=== PATIENT | female | born 1940 | race Caucasian/White ===

== ENCOUNTER 2017-06-20 16:01 | Observation (INO) | payer MEDICARE ==
[2017-06-20 17:10] LABS: #Basophils 0.1 thou/uL (0.0-0.2); #Eosinphils 0.1 thou/uL (0.0-0.7); #Lymphocytes 0.9 thou/uL (1.20-3.40); #Monocytes 0.6 thou/uL (0.11-0.59); %Basophils 2.2 % (0.0-1.0); %Eosinophils 1.9 % (0.0-10.0); %Lymphocytes 13.1 % (21.0-51.0); %Monocytes 8.6 % (0.0-10.0); Band 3 % (5-11); Hematocrit 36.2 % (36.0-47.0); Neutrophil 69 % (42-75); Reactive Lymphocytes 8 % (0-10); Red Blood Cell (RBC) Count 4.22 mill/uL (4.20-5.40); Vacuoles SLIGHT; White Blood Cell (WBC) Count 6.7 thou/uL (4.8-10.8)
[2017-06-20 17:13] LABS: ALT (SGPT) 19 U/L (8-55); AST (SGOT) 25 U/L (5-34); Alkaline Phosphatase 87 U/L (40-150); Anion Gap 15 mmol/L (10-20); BUN (Urea Nitrogen) 12 mg/dL (9.8-20.1); Bilirubin, Total 0.8 mg/dL (0.2-1.2); Calc. Creatinine Clearance 0 mL/min (70-130); Calcium 9.2 mg/dL (7.8-10.44); Carbon Dioxide 21 mmol/L (23-31); Chloride 93 mmol/L (98-107); Estimated GFR-MDRD 63; Globulin 2.7 g/dL (2.4-3.5); Protein, Total 6.7 g/dL (6.0-8.3)
[2017-06-20 17:15] LABS: Troponin I Less than 0.010 ng/mL (< 0.028)
[2017-06-20 17:30] LABS: Bilirubin Negative (Negative); Blood, Urine Negative (Negative); Glucose, Urine (Dipstick) Negative (Negative); Ketone, Urine 15 mg/dL (Negative); Nitrite Negative (Negative); Protein, Urine (Dipstick) Negative (Neg-Trace); Urobilinogen 0.2 mg/dL (0.2-1.0)
[2017-06-20 20:16] VITALS: BMI 20.5
[2017-06-20] MEDS ORDERED: Sodium Chloride 0.9% 1,000 ML IV SCH ×2 (20:45→22:30)
[2017-06-20] MEDS ORDERED: cloNIDine 0.1 MG TAB PO PRN (22:16)
[2017-06-20] MEDS ORDERED: Acetaminophen 325 MG TAB PO PRN (22:16)
[2017-06-20] MEDS ORDERED: Ondansetron HCl/PF 4 MG/2 ML Vial IVP PRN (22:16)
[2017-06-20] MEDS ORDERED: Bisacodyl 5 MG TAB PO PRN (22:16)
--- NOTE | 2017-06-20 23:06 | HP ---
PRIMARY CARE PHYSICIAN: Dk Benitez M.D. SLIDE FASTENER CHAIN ASSEMBLER: Dallin Montalvo M.D. CHIEF COMPLAINT: Generalized weakness and chills. HISTORY OF PRESENT ILLNESS: Ms. Gongora is a pleasant, 77-year-old lady, who was seen at [facility] on 06/20/2017. She presented to [facility] Emergency Room complaining of chills and weakness. She has a history of hypertension. She reports that it was poorly controlled over the last several w eeks. She reports having renal ultrasound at [facility] and is currently awaiting a CT scan next week. She brought with her record of her medication use over the last few weeks. It appears that she has t ried hydrochlorothiazide for a few weeks. This was stopped, and then subsequently, she has been advi sed to try hydralazine. She took hydralazine for 2 days. She reports that her blood pressure has be en lower than usual after starting hydralazine. However, she woke up today with chills and generaliz ed weakness, attributes it to hydralazine use. She also reports that she has a dry mouth and has been very thirsty. She reports drinking a lot of w ater. REVIEW OF SYSTEMS: The following complete review of systems was negative, unless otherwise mentioned in the HPI or below: Constitutional: Weight loss or gain, sense of well-being, ability to conduct usual activities, exerc ise tolerance. Skin/Breast: Rash, itching, changes in hair growth or loss, nail changes, breast lumps, tenderness, swelling, nipple discharge. Eyes: Vision, double vision, tearing, blind spots, pain. ENT/Mouth: Headaches (location, time of onset, duration, precipitating factors), vertigo, lightheade dness, injury. Vision, double vision, tearing, blind spots, pain, nose bleeding, colds, obstruction, discharge, dental difficulties, gingival bleeding, dentures, neck stiffness, pain, tenderness, masses in thyroid or other areas. Cardiovascular: Precordial pain, substernal distress, palpitations, syncope, dyspnea on exertion, or thopnea, nocturnal paroxysmal dyspnea, edema, cyanosis, hypertension, heart murmurs, varicosities, ph lebitis, claudication. Respiratory: Pain, shortness of breath, wheezing, stridor, cough, hemoptysis, fever or night sweats. Gastrointestinal: Poor appetite, dysphagia, indigestion, abdominal pain, heartburn, eructation, naus ea, vomiting, hematemesis, jaundice, constipation, or diarrhea, abnormal stools (suzanne-colored, tarry, bloody, greasy, foul smelling), flatulence, hemorrhoids, recent changes in bowel habits. Genitourinary: Urgency, frequency, dysuria, nocturia, hematuria, polyuria, oliguria, unusual (or rbeeca nge in) color of urine, stones, hesitancy, change in size of stream, dribbling, acute retention or in continence, libido, potency. Musculoskeletal: Pain, swelling, redness or heat of muscles or joints, limitation, of motion, muscul ar weakness, atrophy, cramps. Neurologic/Psychiatric: Convulsions, paralyses, tremor, incoordination, paresthesias, difficulties w ith memory of speech, sensory or motor disturbances, or muscular coordination (ataxia, tremor), emoti onal problems, anxiety, depression, previous psychiatric care, unusual perceptions, hallucinations. Allergy/Immunologic: Skin rash, anemia, bleeding tendency, polydipsia, polyuria, intolerance to heat or cold. PAST MEDICAL HISTORY: Significant for hypertension. PAST SURGICAL HISTORY: Significant for bladder and bowel tuck surgery in 2007. SOCIAL HISTORY: The patient denies tobacco use, alcohol use or recreational drug use. FAMILY HISTORY: Significant for hypertension and intracranial aneurysm rupture in her mother. ALLERGIES: She is allergic to IODINE-CONTAINING DRUGS and NONSTEROIDAL ANTI-INFLAMMATORY AGENTS. CURRENT MEDICATIONS: Include Benicar 20 mg daily, Toprol-XL 12.5 mg daily, which she took today, kuldeep nidine 0.1 mg as needed for systolic blood pressure greater than 180, and hydralazine 25 mg 2 times a day. PHYSICAL EXAMINATION: GENERAL: On examination, Ms. Gongora is awake and alert, not in acute distress. VITAL SIGNS: Blood pressure is 172/80, pulse is 97, she is breathing at rate of 20 and saturating 10 0% on room air. She is afebrile. EYES: No scleral icterus. No conjunctival pallor. ENT: Moist mucosal membranes, no oropharyngeal erythema or exudates. NECK: Supple, nontender, normal range of movement, trachea is midline. RESPIRATORY: Accessory muscles of breathing are not active. Chest wall movements are symmetric bila terally. LUNGS: Clear to auscultation without wheeze, rhonchi or crepitations. CARDIOVASCULAR: S1 and S2 are heard, regular. Peripheral pulses palpable. No carotid bruit, no per icardial rub. ABDOMEN: Soft, nontender, bowel sounds are heard, no hepatomegaly, no splenomegaly. SKIN: No rashes or subcutaneous nodules. NEUROLOGIC: Cranial nerves II-XII are intact. Deep tendon reflexes are 2+. MUSCULOSKELETAL: Power is 5/5 in all 4 extremities, normal range of movement at all major extremity joints. PSYCHIATRIC: Normal mood, normal affect, patient is oriented to person, place, and time. LABORATORY DATA: Ms. Gongora' labs and investigations were reviewed. She had an electrocardiogram, whic h shows normal sinus rhythm, no ST changes to suggest an acute coronary syndrome. Laboratory investi gation show a normal white count, normal hemoglobin, elevated platelet count of 485,000, decreased so dium of 125, normal potassium, normal creatinine and normal liver profile. Urinalysis shows ketones. ASSESSMENT AND PLAN: Ms. Gongora is a pleasant, 77-year-old lady, who was seen at [facility] on 06/20/2017. Her problem list includes: 1. Hyponatremia: Etiology unclear, but could be related to her hydrochlorothiazide use or to excess free water intake. We will admit her to the hospital and restrict oral fluid intake to less than 2 liters per day. We will also start intravenous normal saline at 75 mL per hour. We will initiate wo rkup for hyponatremia. 2. Hypertension: We will resume her home medications, monitor vital signs, and titrate antihyperten sives as needed. 3. Thrombocythemia: Etiology unclear. We will recheck. The patient may need workup as outpatient. Many thanks for allowing me to participate in your patient's care. Please feel free to contact me wi th any questions or concerns. LEVEL OF RISK: Moderate. LEVEL OF COMPLEXITY: Moderate.
[2017-06-21 03:55] LABS: Potassium, Urine Less than 10.0 mmol/L; Sodium, Urine 38 mmol/L (Not Available)
[2017-06-21 06:04] LABS: Anion Gap 9 mmol/L (10-20); BUN (Urea Nitrogen) 9 mg/dL (9.8-20.1); Calc. Creatinine Clearance 55 mL/min (70-130); Calcium 8.6 mg/dL (7.8-10.44); Carbon Dioxide 23 mmol/L (23-31); Chloride 104 mmol/L (98-107); Cholesterol 204 mg/dl (< 200 Desired); Estimated GFR-MDRD 70; LDL Cholesterol, Calculated 128 mg/dL
[2017-06-21 06:11] LABS: Hematocrit 36.2 % (36.0-47.0); Mean Platelet Volume 6.2 fL (7.4-10.4); Neutrophil 66 % (42-75); Red Blood Cell (RBC) Count 3.98 mill/uL (4.20-5.40); White Blood Cell (WBC) Count 4.8 thou/uL (4.8-10.8)
[2017-06-21] MEDS ORDERED: Enoxaparin Sodium 40 MG/0.4 ML SYRINGE SC SCH (09:00)
[2017-06-21 11:35] VITALS: BP 149/70; TEMP 97.4
--- NOTE | 2017-06-21 12:46 | PDOC.PN ---
- Subjective Encounter Start Date: 06/21/17 Encounter Start Time: 12:45 Ms. Gongora was seen today in follow-up of generalized weakness. She is feeling much better now, and does not have any complaints. - Objective Resuscitation Status: Resuscitation Status FULL:Full Resuscitation MAR Reviewed: Yes Vital Signs & Weight: Vital Signs (12 hours) Temp Pulse Resp BP BP Pulse Ox 06/21/17 11:35 97.4 F L 78 16 149/70 H 98 06/21/17 08:00 97.9 F 78 18 06/21/17 07:45 78 18 182/77 H 97 06/21/17 03:20 97.8 F 78 14 155/71 H 95 Weight Weight 127 lb I&O: 06/20/17 06/21/17 06/22/17 06:59 06:59 06:59 Intake Total 1151 Output Total 2350 Balance -1199 Result Diagrams: 06/21/17 05:04 06/21/17 05:04 Phys Exam - Physical Examination HEENT: PERRLA Respiratory: no wheezing, no rales, no rhonchi, clear to auscultation bilateral Cardiovascular: RRR, no significant murmur Gastrointestinal: soft, non-tender, positive bowel sounds Musculoskeletal: no edema Dx/Plan (1) Generalized weakness Code(s): R53.1 - WEAKNESS Status: Acute (2) Hypertension Code(s): I10 - ESSENTIAL (PRIMARY) HYPERTENSION Status: Acute (3) Hyponatremia Code(s): E87.1 - HYPO-OSMOLALITY AND HYPONATREMIA Status: Acute - Plan * Hyponatremia- improved- likely from volume depletion- this should likey resolve now that she is no longer taking HCTZ * Generalized weakness- from hyponatremia * She is stable for discharge home
--- NOTE | 2017-06-21 18:59 | DIS ---
PRIMARY CARE PHYSICIAN: Dr. Benitez. DATE OF ADMISSION: 06/20/2017 DATE OF DISCHARGE: 06/21/2017 DISCHARGE DISPOSITION: Home. PRIMARY DISCHARGE DIAGNOSES: 1. Generalized weakness. 2. Hyponatremia, likely secondary to hydrochlorothiazide. 3. Hypertension. DISCHARGE MEDICATIONS: The patient is to continue Benicar 20 mg daily, metoprolol succinate 12.5 mg daily, and clonidine as needed. ALLERGIES: IODINE and NSAIDS. CODE STATUS: Full CODE. HOSPITAL COURSE: Ms. Gongora is a pleasant 77-year-old female who was brought to the emergency room afte r she was feeling generally weak and started having chills, feeling like she was ice cold. Her [facility] physician had been working with her blood pressure medications in order to try to achieve bet ter control. She had been on hydrochlorothiazide for a few weeks and then this was discontinued and then placed on hydralazine. This is when she began having these symptoms. When she was seen in the emergency room, she was found to have a sodium of 125. It is felt that her serum sodium was low as a result of hydrochlorothiazide usage. This corrected easily with saline and it is felt that the othe r symptoms that she had was result of the side effects to hydralazine. She will be discharged home a nd she was instructed to continue her previous medication regimen including the olmesartan and metopr olol with clonidine as needed. She can liberalize her sodium intake and then followup with Dr. Benitez within the next week for further instructions as to what to do with her blood pressure.
== END 2017-06-21 13:55 | disposition home or self-care (01) ==
LOC: SCSER 16:01 → 2SW 18:12
PROVIDERS: ADMIT Internal Medicine Infectious Disease; ATTEND Internal Medicine Infectious Disease
DX: R53.1 Weakness (principal); E87.1 Hypo-osmolality and hyponatremia; I10 Essential (primary) hypertension; R68.83 Chills (without fever); D47.3 Essential (hemorrhagic) thrombocythemia; Z79.899 Other long term (current) drug therapy; Z88.6 Allergy status to analgesic agent; Z88.8 Allergy status to other drugs, medicaments and biological substances; Z91.041 Radiographic dye allergy status; Z98.890 Other specified postprocedural states
CPT/HCPCS: 80048; 80053; 80061; 81003; 82436; 82553; 82570; 83930; 83935; 84133; 84300; 84443; 84484; 85025 ×2; 93005; 96360; 96361 ×2; 96372; 97139; 99285; G0378; 36415; J1650

== ENCOUNTER 2018-03-22 17:36 | Emergency (ER) | payer MEDICARE | END 2018-03-22 18:11 | disposition home or self-care (01) | LOC: SCSER 17:36 | DX: T16.1XXA Foreign body in right ear, initial encounter (principal); I10 Essential (primary) hypertension; Z79.899 Other long term (current) drug therapy | CPT/HCPCS: 69200 ==

== ENCOUNTER 2020-09-04 10:56 | Outpatient (CLI) | payer MEDICARE, OTHER ==
--- NOTE | 2020-09-04 12:50 | RAD ---
Exam: 3 views lumbar spine HISTORY: L5 compression fracture COMPARISON: None Correlation: Chest abdomen pelvis CT 06/28/2020 FINDINGS: 5 lumbar type vertebra. Redemonstration of a compression deformity at L5. There does appear to be slight progression from the loss of vertebral body height when taking different modalities and consideration. There is retropulsion. There is approximately 40% loss of vertebral body height IMPRESSION: L5 compression fracture with retropulsion. Approximately 40% loss of vertebral body maribel damico
--- NOTE | 2020-09-04 12:50 | RAD ---
Exam: 2 views thoracic spine HISTORY: T8 compression fracture. COMPARISON: Chest, abdomen, and pelvic CT 07/16/2020. FINDINGS: Redemonstration of essentially vertebral plana at the T10 level. There is also moderate to severe los s of vertebral body height at T8 with mild retropulsion. No additional fractures are appreciated. IMPRESSION: Near complete loss of vertebral body height at T10. Moderate to severe loss of vertebral body height due to fracture at T8. Transcribed Date/Time: 09/04/2020 1:42 PM
== END 2020-09-04 10:57 | disposition home or self-care (01) ==
LOC: SCSRAD 10:56
PROVIDERS: ATTEND Neurological Surgery
DX: S32.059A Unspecified fracture of fifth lumbar vertebra, initial encounter for closed fracture (principal); S22.069A Unspecified fracture of T7-T8 vertebra, initial encounter for closed fracture
CPT/HCPCS: 72070; 72100

== ENCOUNTER 2020-12-26 11:12 | Outpatient (CLI) | payer MEDICARE, OTHER | END 2020-12-26 11:13 | disposition home or self-care (01) | LOC: SCSMRI 11:12 | PROVIDERS: ATTEND Neurological Surgery | DX: S32.050A Wedge compression fracture of fifth lumbar vertebra, initial encounter for closed fracture (principal); S22.000A Wedge compression fracture of unspecified thoracic vertebra, initial encounter for closed fracture; M47.816 Spondylosis without myelopathy or radiculopathy, lumbar region; M47.814 Spondylosis without myelopathy or radiculopathy, thoracic region; M48.061 Spinal stenosis, lumbar region without neurogenic claudication; M48.04 Spinal stenosis, thoracic region | CPT/HCPCS: 72072; 72110; 72146; 72148 ==

== ENCOUNTER 2024-04-20 16:11 | Outpatient (CLI) | payer MEDICARE, OTHER | END 2024-04-20 16:12 | disposition home or self-care (01) | LOC: SCSRAD 16:11 | PROVIDERS: ATTEND Nurse Practitioner Family | DX: M54.6 Pain in thoracic spine (principal); M47.816 Spondylosis without myelopathy or radiculopathy, lumbar region; I70.90 Unspecified atherosclerosis; S22.061D Stable burst fracture of T7-T8 vertebra, subsequent encounter for fracture with routine healing; S22.071D Stable burst fracture of T9-T10 vertebra, subsequent encounter for fracture with routine healing; S32.051D Stable burst fracture of fifth lumbar vertebra, subsequent encounter for fracture with routine healing | CPT/HCPCS: 72072; 72100 ==